=== PATIENT | male | born 1970 | race Caucasian/White ===

== ENCOUNTER 2022-05-19 00:08 | Emergency (ER) | payer OTHER | END 2022-05-19 01:15 | disposition left against medical advice (07) | LOC: ER 00:24 | DX: Z53.21 Procedure and treatment not carried out due to patient leaving prior to being seen by health care provider (principal) ==

== ENCOUNTER 2022-05-19 07:47 | Emergency (ER) | payer OTHER, MEDICAID ==
[~2022-05-19] VITALS: Ht 180.3 cm; Wt 63.5 kg
[2022-05-19 07:56] VITALS: BP 119/50
[2022-05-19] MEDS ORDERED: BACI/NEOM/POLY B OINT PKT 1 UDPKT PACKET ONE (08:17)
--- NOTE | 2022-05-19 08:27 | NUR ---
Pt refusing nursing home placement states "I have somebody picking me up" Patient discharged to home in stable condition. Written and verbal after care instructions given. Patient verbalizes understanding of instruction.
[2022-05-19] MEDS ORDERED: BACI/NEOM/POLY B OINT PKT 1 UDPKT PACKET TP ONE (08:30)
== END 2022-05-19 08:27 | disposition home or self-care (01) ==
LOC: ER 07:59
DX: S01.111D Laceration without foreign body of right eyelid and periocular area, subsequent encounter (principal); S50.811A Abrasion of right forearm, initial encounter; T25.221A Burn of second degree of right foot, initial encounter; T79.9XXA Unspecified early complication of trauma, initial encounter; Z48.02 Encounter for removal of sutures; Z59.00 Homelessness unspecified; X58.XXXD Exposure to other specified factors, subsequent encounter; X58.XXXA Exposure to other specified factors, initial encounter; Y93.89 Activity, other specified; Y92.89 Other specified places as the place of occurrence of the external cause; Y99.8 Other external cause status; X08.8XXA Exposure to other specified smoke, fire and flames, initial encounter